=== PATIENT | male | born 1985 | race American Indian/Alaskan Native ===

== ENCOUNTER 2017-11-16 23:00 | Emergency (ER) | payer BC ==
[2017-11-16 23:49] VITALS: RESP 18; TEMP 98; BMI 25.8
[2017-11-17] MEDS ORDERED: Tobramycin 0.3% OPHT SOLN OU STA (00:49)
--- NOTE | 2017-11-17 01:09 | ED PDOC ---
Arrival/HPI - General Chief Complaint: Eye Problem Time Seen by Provider: 11/17/17 00:34 Historian: Patient - History of Present Illness Narrative History of Present Illness (Text): 11/17/17 00:58 32 year old male, whose past medical history includes asthma, presents to the emergency department for evaluation of pink eye. Patient states he has some redness to his eyes. Patient also states he recently had unprotected sex with an individual that tested HIV positive. Patient denies any fever, chills, chest pain, shortness of breath, nausea, vomiting, diarrhea, urinary symptoms, back pain, neck pain, headache, dizziness, or any other complaints. Symptom Onset: Gradual Symptom Course: Unchanged Activities at Onset: Light Context: Home Past Medical History - Provider Review Nursing Documentation Reviewed: Yes - Infectious Disease Hx of Infectious Diseases: None - Cardiac Hx Cardiac Disorders: No - Pulmonary Hx Respiratory Disorders: Yes Hx Asthma: Yes - Neurological Hx Neurological Disorder: No - HEENT Hx HEENT Disorder: No - Renal Hx Renal Disorder: No - Endocrine/Metabolic Hx Endocrine Disorders: No - Hematological/Oncological Hx Blood Disorders: No - Integumentary Hx Dermatological Disorder: No - Musculoskeletal/Rheumatological Hx Musculoskeletal Disorders: No - Gastrointestinal Hx Gastrointestinal Disorders: No - Genitourinary/Gynecological Hx Genitourinary Disorders: No - Psychiatric Hx Psychophysiologic Disorder: No Hx Substance Use: No Family/Social History - Physician Review Nursing Documentation Reviewed: Yes Family/Social History: No Known Family HX Smoking Status: Never Smoked Hx Alcohol Use: No Hx Substance Use: No Allergies/Home Meds Allergies/Adverse Reactions: Allergies No Known Allergies Allergy (Verified 11/16/17 23:53) Review of Systems - Physician Review All systems were reviewed & negative as marked: Yes - Review of Systems Constitutional: absent: Fevers, Other (Chills) Eyes: Other (red and itchy eyes) Respiratory: absent: SOB Cardiovascular: absent: Chest Pain Gastrointestinal: absent: Diarrhea, Nausea, Vomiting Genitourinary Male: absent: Dysuria, Frequency, Hematuria Musculoskeletal: absent: Back Pain, Neck Pain Neurological: absent: Headache, Dizziness Physical Exam Vital Signs Reviewed: Yes Vital Signs Temp Pulse Resp BP Pulse Ox 11/17/17 02:30 98.0 F 70 18 147/89 99 11/16/17 23:48 98.0 F 71 18 158/110 H 98 Temperature: Afebrile Blood Pressure: Hypertensive Pulse: Regular Respiratory Rate: Normal Appearance: Positive for: Well-Appearing, Non-Toxic, Comfortable Pain Distress: None Mental Status: Positive for: Alert and Oriented X 3 - Systems Exam Head: Present: Atraumatic, Normocephalic Pupils: Present: PERRL Extroacular Muscles: Present: EOMI Conjunctiva: Present: Injected (Left greater than right) Mouth: Present: Moist Mucous Membranes Neck: Present: Normal Range of Motion Respiratory/Chest: Present: Clear to Auscultation, Good Air Exchange. No: Respiratory Distress, Accessory Muscle Use Cardiovascular: Present: Regular Rate and Rhythm, Normal S1, S2. No: Murmurs Abdomen: No: Tenderness, Distention, Peritoneal Signs Back: Present: Normal Inspection Upper Extremity: Present: Normal Inspection. No: Cyanosis, Edema Lower Extremity: Present: Normal Inspection. No: Edema Neurological: Present: GCS=15, CN II-XII Intact, Speech Normal Skin: Present: Warm, Dry, Normal Color. No: Rashes Psychiatric: Present: Alert, Oriented x 3, Normal Insight, Normal Concentration Medical Decision Making ED Course and Treatment: 11/17/17 01:02 Impression: 32 year old male presents complaining of redness to the eyes. Patient also reports he had unprotective sex with an individual who tested HIV positive.Patient is requesting HIV test and treatment for possible HIV exposure. Plan: -- Labs -- Tobrex 0.3% Ophth Soln -- Rapid HIV Screen -- Reassess and disposition - Lab Interpretations Lab Results: 11/17/17 01:01 11/17/17 01:01 Lab Results 11/17/17 01:01: HIV-1 Ab Rapid Screen Non reactive 11/17/17 01:01: WBC 8.6, RBC 5.27, Hgb 15.7, Hct 43.3, MCV 82.2, MCH 29.8, MCHC 36.3, RDW 12.7, Plt Count 200, MPV 9.4 11/17/17 01:01: Sodium 141, Potassium 4.2, Chloride 99, Carbon Dioxide 29, Anion Gap 17, BUN 12, Creatinine 1.0, Est GFR ( Amer) > 60, Est GFR (Non- Af Amer) > 60, Random Glucose 97, Calcium 9.5, Total Bilirubin 1.1, AST 26, ALT 22, Alkaline Phosphatase 99, Total Protein 8.8 H, Albumin 4.7, Globulin 4.1, Albumin/Globulin Ratio 1.1 I have reviewed the lab results: Yes - Medication Orders Current Medication Orders: Discontinued Medications Emtricitabine/Tenofovir (Truvada 200 Mg-300 Mg) 1 tab PO ONCE ONE PRN Reason: Protocol Stop: 11/17/17 01:14 Last Admin: 11/17/17 01:32 Dose: 1 tab Raltegravir (Isentress) 400 mg PO ONCE ONE PRN Reason: Protocol Stop: 11/17/17 01:15 Last Admin: 11/17/17 01:32 Dose: 400 mg Tobramycin Sulfate (Tobrex 0.3% Ophth Soln) 1 drop OU ONCE STA Stop: 11/17/17 00:50 Last Admin: 11/17/17 01:32 Dose: 1 drop - Scribe Statement The provider has reviewed the documentation as recorded by the Minor Mead Provider Scribe Attestation: All medical record entries made by the Minor were at my direction and personally dictated by me. I have reviewed the chart and agree that the record accurately reflects my personal performance of the history, physical exam, medical decision making, and the department course for this patient. I have also personally directed, reviewed, and agree with the discharge instructions and disposition. Disposition/Present on Arrival - Present on Arrival Any Indicators Present on Arrival: No History of DVT/PE: No History of Uncontrolled Diabetes: No Urinary Catheter: No History of Decub. Ulcer: No History Surgical Site Infection Following: None - Disposition Have Diagnosis and Disposition been Completed?: Yes Diagnosis: Conjunctivitis, HIV exposure from body fluids Disposition: HOME/ ROUTINE Disposition Time: 02:31 Patient Plan: Discharge Patient Problems: Current Active Problems Problem Status Onset Conjunctivitis Acute HIV exposure from body fluids Acute Condition: GOOD Additional Instructions: Take meds as prescribed/follow up with the infectious disease specialist this week Prescriptions: Raltegravir Potassium [Isentress] 400 mg PO BID #28 tab Tobramycin 0.3% [Tobrex 0.3% Ophth Soln] 2 drop OU QID #1 bottle Emtricitabine/Tenofovir (Tdf) [Truvada 200 mg-300 mg Tablet] 1 each PO DAILY # 14 tablet Referrals: Daniel Acosta MD [Staff Provider] - Follow up with primary Forms: [employer] (Georgian)
[2017-11-17] MEDS ORDERED: Emtricitabine-Tenofovir 200 mg-300 mg Tab PO ONE (01:13)
[2017-11-17 01:17] LABS: HEMOGLOBIN 15.7 g/dL (14.0-18.0); MEAN CELL VOLUME 82.2 fl (80.0-105.0); MEAN CORPUSCULAR HEMOGLOBIN 29.8 pg (25.0-35.0); MEAN CORPUSCULAR HGB CONC 36.3 g/dl (31.0-37.0); MEAN PLATELET VOLUME 9.4 fl (7.0-11.0); RBC 5.27 10^6/uL (3.5-6.1); RED CELL DISTRIBUTION WIDTH 12.7 % (11.5-14.5); WHITE BLOOD COUNT 8.6 10^3/ul (4.5-11.0)
[2017-11-17 01:22] LABS: ALB/GLOB RATIO 1.1 (1.1-1.8); ALBUMIN 4.7 g/dL (3.0-4.8); ALT/SGPT 22 U/L (7-56); AST/SGOT 26 U/L (17-59); BLOOD UREA NITROGEN 12 mg/dL (7-21); CALCIUM 9.5 mg/dL (8.4-10.5); GFR NON-AFRICAN AMERICAN > 60
[2017-11-17 02:57] VITALS: BP 147/89; PULSE 70; O2SAT 99
== END 2017-11-17 02:39 | disposition home or self-care (01) ==
LOC: ED 23:00 → MERGE 23:00 → ED 11-17 02:39
DX: H10.9 Unspecified conjunctivitis (principal); Z20.6 Contact with and (suspected) exposure to human immunodeficiency virus [HIV]